=== PATIENT | male | born 1990 | race Caucasian/White ===

== ENCOUNTER 2017-07-29 09:08 | Emergency (ER) | payer BC ==
[~2017-07-29] VITALS: Ht 170.2 cm; Wt 92.5 kg
[2017-07-29 09:24] VITALS: BP 133/79; Ht 170.2 cm; Wt 92.5 kg
== END 2017-07-29 10:41 | disposition home or self-care (01) ==
LOC: ED 09:08
DX: B34.9 Viral infection, unspecified (principal)